=== PATIENT | female | born 1950 | race Hispanic/Latino ===

== ENCOUNTER 2019-11-29 22:49 | Emergency (ER) | payer MEDICARE ==
[2019-11-30 01:44] LABS: Bilirubin,Urine NEG (Negative); Blood,Urine SM (Negative); Color,Urine Yellow (Yellow); Protein,Urine <15 mg/dL mg/dL (Negative)
[2019-11-30] MEDS ORDERED: HYDROcodone/ACETAMINOPHEN 5-325 MG TAB PO ONE (03:37)
[2019-11-30] MEDS ORDERED: LIDOCAINE VISCOUS 2% 15 ML ORAL LIQD MM NR (04:00)
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
[2019-11-30 06:17] VITALS: BP 131/75
== END 2019-11-30 05:36 | disposition home or self-care (01) ==
LOC: ED 22:49
DX: K62.3 Rectal prolapse (principal); N81.10 Cystocele, unspecified; J42 Unspecified chronic bronchitis; I10 Essential (primary) hypertension; F17.200 Nicotine dependence, unspecified, uncomplicated; Z79.1 Long term (current) use of non-steroidal anti-inflammatories (NSAID); Z79.899 Other long term (current) drug therapy; Z88.0 Allergy status to penicillin; Z88.2 Allergy status to sulfonamides
CPT/HCPCS: 81001

== ENCOUNTER 2019-12-26 20:30 | Emergency (ER) | payer MEDICARE ==
[2019-12-26 22:47] VITALS: BP 113/68
[2019-12-26] MEDS ORDERED: oxyCODONE /ACETAMINOPHEN 5-325MG TAB PO ONE (23:50)
--- NOTE | 2019-12-27 00:29 | XRay Report ---
LEFT WRIST 3 VIEWS INDICATION / CLINICAL INFORMATION: Foosh injury with pain and deformity COMPARISON: None available. FINDINGS: BONES / JOINT(S): Nondisplaced fracture extending into the distal radius along the ulnar aspect. Ther e is involvement of the radiocarpal joint. No carpal injury. SOFT TISSUES: No significant abnormality. ADDITIONAL FINDINGS: None. LEFT HAND 3 VIEWS INDICATION / CLINICAL INFORMATION: Foosh injury with pain and deformity COMPARISON: None available. FINDINGS: BONES / JOINT(S): Nondisplaced fracture distal radius. Advanced DJD first carpometacarpal joint. SOFT TISSUES: No significant abnormality. ADDITIONAL FINDINGS: None. Signer Name: Claude Jo MD Signed: 12/27/2019 12:25 AM Workstation Name: [id number]
--- NOTE | 2019-12-27 00:37 | Emergency Department Report ---
ED General Adult HPI - General Chief complaint: Extremity Injury, Upper Stated complaint: FALL Time Seen by Provider: 12/26/19 23:23 Source: patient Mode of arrival: Ambulatory Limitations: No Limitations - History of Present Illness Initial comments: 69-year-old female patient presents with complaints of left wrist and hand pain after fall on outstretched hand today. She denies any head trauma or loss of consciousness or preceding symptoms. She states it was a mechanical fall. She rates her pain as a 10/10 in severity and states there is significant swelling. She denies any numbness/tingling/weakness in her hand or wrist. -: Sudden Severity scale (0 -10): 10 - Related Data Previous Rx's Medication Instructions Recorded Last Taken Type Antipyrine/Benzocaine 14 ml OT Q4HR PRN #1 bottle 09/23/13 Unknown Rx [Antipyrine-Benzocaine Otic Vero] cephALEXin [Keflex] 500 mg PO Q6H #40 capsule 09/23/13 Unknown Rx HYDROcodone/APAP 5-325 [[place] 1 each PO Q6HR PRN #10 tablet 11/04/14 Unknown Rx 5-325 mg TAB] Ibuprofen [Motrin 800 MG tab] 800 mg PO Q8HR PRN #30 tablet 11/04/14 Unknown Rx traMADoL [Ultram 50 MG tab] 50 mg PO Q6HR PRN #20 tablet 11/04/14 Unknown Rx Ibuprofen [Motrin 800 MG tab] 800 mg PO Q8HR PRN #20 tablet 03/27/19 Unknown Rx Albuterol Mdi (or & Nicu Only) 2 puff IH QID PRN #1 inhalation 11/30/19 Unknown Rx [ProAir HFA Inhaler] Benzonatate [Tessalon Perles] 100 mg PO Q8HR #10 capsule 11/30/19 Unknown Rx DOXYCYCLINE Hyclate [Vibramycin 100 mg PO Q12HR #14 capsule 11/30/19 Unknown Rx CAP] Lidocaine [Lidocaine GEL] 1 applicatio TP BID #60 gel..gram. 11/30/19 Unknown Rx predniSONE [Deltasone] 20 mg PO QDAY #5 tab 11/30/19 Unknown Rx Allergies Allergy/AdvReac Type Severity Reaction Status Date / Time Sulfa (Sulfonamide Allergy Rash Verified 09/23/13 11:48 Antibiotics) penicillin AdvReac Unknown Verified 11/03/14 23:28 ED Review of Systems ROS: Stated complaint: FALL Other details as noted in HPI Constitutional: denies: chills, fever Respiratory: denies: shortness of breath Cardiovascular: denies: chest pain Gastrointestinal: denies: abdominal pain Musculoskeletal: joint swelling, arthralgia Skin: denies: rash, lesions, change in color Neurological: denies: numbness, paresthesias ED Past Medical Hx - Past Medical History Hx Hypertension: Yes Hx COPD: Yes Additional medical history: chronic back pain. PUD. HEP C - Surgical History Additional Surgical History: hyst - Social History Smoking Status: Current Every Day Smoker Substance Use Type: None - Medications Home Medications: Home Medications Medication Instructions Recorded Confirmed Last Taken Type Antipyrine/Benzocaine 14 ml OT Q4HR PRN #1 bottle 09/23/13 Unknown Rx [Antipyrine-Benzocaine Otic Vero] cephALEXin [Keflex] 500 mg PO Q6H #40 capsule 09/23/13 Unknown Rx HYDROcodone/APAP 5-325 [[place] 1 each PO Q6HR PRN #10 tablet 11/04/14 Unknown Rx 5-325 mg TAB] Ibuprofen [Motrin 800 MG tab] 800 mg PO Q8HR PRN #30 tablet 11/04/14 Unknown Rx traMADoL [Ultram 50 MG tab] 50 mg PO Q6HR PRN #20 tablet 11/04/14 Unknown Rx Ibuprofen [Motrin 800 MG tab] 800 mg PO Q8HR PRN #20 tablet 03/27/19 Unknown Rx Albuterol Mdi (or & Nicu Only) 2 puff IH QID PRN #1 inhalation 11/30/19 Unknown Rx [ProAir HFA Inhaler] Benzonatate [Tessalon Perles] 100 mg PO Q8HR #10 capsule 11/30/19 Unknown Rx DOXYCYCLINE Hyclate [Vibramycin 100 mg PO Q12HR #14 capsule 11/30/19 Unknown Rx CAP] Lidocaine [Lidocaine GEL] 1 applicatio TP BID #60 gel..gram. 11/30/19 Unknown Rx predniSONE [Deltasone] 20 mg PO QDAY #5 tab 11/30/19 Unknown Rx ED Physical Exam - General Limitations: No Limitations General appearance: alert, in no apparent distress - Head Head exam: Present: atraumatic, normocephalic - Eye Eye exam: Present: normal appearance. Absent: scleral icterus - Neck Neck exam: Present: normal inspection. Absent: tenderness - Respiratory Respiratory exam: Absent: respiratory distress - Cardiovascular Cardiovascular Exam: Present: regular rate, normal rhythm - Extremities Exam Extremities exam: Present: other (Left wrist and hand swelling and tenderness to palpation noted; no decreased sensation noted. Patient is able to flex and extend all 5 digits; decreased flexion and extension of the wrist noted secondary to pain) - Back Exam Back exam: Present: full ROM - Neurological Exam Neurological exam: Present: alert, oriented X3, normal gait - Psychiatric Psychiatric exam: Present: normal affect, normal mood - Skin Skin exam: Present: warm, dry, intact, normal color. Absent: rash, cyanosis, diaphoretic, erythema, pallor, ecchymosis ED Course Vital Signs 12/26/19 20:38 Temperature 98.0 F Pulse Rate 71 Respiratory 18 Rate Blood Pressure 113/68 O2 Sat by Pulse 92 Oximetry - Procedure Description Procedures done: Left sugar tong splint applied; patient remains neurovascularly intact in all 5 digits post splint application. She tolerated procedure well. ED Medical Decision Making - Radiology Data Radiology results: report reviewed LEFT WRIST 3 VIEWS INDICATION / CLINICAL INFORMATION: Foosh injury with pain and deformity COMPARISON: None available. FINDINGS: BONES / JOINT(S): Nondisplaced fracture extending into the distal radius along the ulnar aspect. There is involvement of the radiocarpal joint. No carpal injury. SOFT TISSUES: No significant abnormality. ADDITIONAL FINDINGS: None. LEFT HAND 3 VIEWS INDICATION / CLINICAL INFORMATION: Foosh injury with pain and deformity COMPARISON: None available. FINDINGS: BONES / JOINT(S): Nondisplaced fracture distal radius. Advanced DJD first carpometacarpal joint. SOFT TISSUES: No significant abnormality. ADDITIONAL FINDINGS: None. - Medical Decision Making Patient here with left wrist and hand pain after a FOOSH injury. X-ray showed a nondisplaced distal radial fracture extending through the radiocarpal joint. sugar tong splint applied. Patient informed to follow-up with Dr. Thang Lozano, orthopedics, first thing tomorrow morning for further evaluation and treatment. Discussed signs and symptoms that should prompt immediate return to the emergency department in detail with patient who verbalizes understanding. She is well-appearing and stable for discharge home. Critical care attestation.: If time is entered above; I have spent that time in minutes in the direct care of this critically ill patient, excluding procedure time. ED Disposition Clinical Impression: Distal radius fracture, left Qualifiers: Encounter type: initial encounter Fracture type: closed Fracture morphology: other fracture Qualified Code(s): S52.592A - Other fractures of lower end of left radius, initial encounter for closed fracture Disposition: TO HOME OR SELFCARE Is pt being admited?: No Condition: Stable Instructions: Wrist Fracture in Adults (ED) Referrals: THANG LOZANO MD [Staff Physician] - 24 Hours
[2019-12-27] MEDS ORDERED: oxyCODONE /ACETAMINOPHEN 5-325MG TAB PO ONE (02:11)
== END 2019-12-27 03:02 | disposition home or self-care (01) ==
LOC: ED 20:30
DX: S52.502A Unspecified fracture of the lower end of left radius, initial encounter for closed fracture (principal); I10 Essential (primary) hypertension; J44.9 Chronic obstructive pulmonary disease, unspecified; F17.200 Nicotine dependence, unspecified, uncomplicated; Z90.710 Acquired absence of both cervix and uterus; Z79.1 Long term (current) use of non-steroidal anti-inflammatories (NSAID); Z79.899 Other long term (current) drug therapy; Z88.2 Allergy status to sulfonamides; Z88.0 Allergy status to penicillin; W19.XXXA Unspecified fall, initial encounter; Y93.89 Activity, other specified; Y92.89 Other specified places as the place of occurrence of the external cause; Y99.8 Other external cause status

== ENCOUNTER 2020-05-24 17:29 | Emergency (ER) | payer MEDICARE ==
[2020-05-24 17:46] VITALS: BP 122/64
--- NOTE | 2020-05-24 17:52 | Emergency Department Report ---
ED Rash HPI - HPI Chief Complaint: Skin/Abscess/Foreign Body Stated Complaint: STAPH ON HEAD Time Seen by Provider: 05/24/20 17:50 Duration: 5 Days Location: Head Suspected Cause: Unknown Rash Symptoms: Yes Itching (head), No Facial Swelling, No Tongue/Oral Swelling, No Breathing Difficulties, No Choking Sensation, No Wheezing/Dyspnea, No Peeling, No Blistering, No Fever, No Lightheaded, No Malaise, No Myalgias Severity: moderate Other History: Patient is a 69-year-old female presents the ED complaining of bacterial infection on her scalp. Patient states that she hair and all of a sudden she had to cut it because she initially had lice and now has a rash on her scalp which itches. Patient denies any other family member with similar symptoms. Patient states she has had this in the past before. ED Review of Systems ROS: Stated complaint: STAPH ON HEAD Other details as noted in HPI Comment: All other systems reviewed and negative ED Past Medical Hx - Past Medical History Hx Hypertension: Yes Hx COPD: Yes Additional medical history: chronic back pain. PUD. HEP C - Surgical History Additional Surgical History: hyst - Social History Smoking Status: Current Every Day Smoker Substance Use Type: Alcohol - Medications Home Medications: Home Medications Medication Instructions Recorded Confirmed Last Taken Type Antipyrine/Benzocaine 14 ml OT Q4HR PRN #1 bottle 09/23/13 Unknown Rx [Antipyrine-Benzocaine Otic Vero] HYDROcodone/APAP 5-325 [[place] 1 each PO Q6HR PRN #10 tablet 11/04/14 Unknown Rx 5-325 mg TAB] Ibuprofen [Motrin 800 MG tab] 800 mg PO Q8HR PRN #30 tablet 11/04/14 Unknown Rx traMADoL [Ultram 50 MG tab] 50 mg PO Q6HR PRN #20 tablet 11/04/14 Unknown Rx Ibuprofen [Motrin 800 MG tab] 800 mg PO Q8HR PRN #20 tablet 03/27/19 Unknown Rx Albuterol Mdi (or & Nicu Only) 2 puff IH QID PRN #1 inhalation 11/30/19 Unknown Rx [ProAir HFA Inhaler] Benzonatate [Tessalon Perles] 100 mg PO Q8HR #10 capsule 11/30/19 Unknown Rx Lidocaine [Lidocaine GEL] 1 applicatio TP BID #60 gel..gram. 11/30/19 Unknown Rx predniSONE [Deltasone] 20 mg PO QDAY #5 tab 11/30/19 Unknown Rx DOXYCYCLINE Hyclate [Vibramycin 100 mg PO Q12HR #14 capsule 05/24/20 Unknown Rx CAP] Ketoconazole [Nizoral A-D] 1 applic TP DAILY #1 shampoo 05/24/20 Unknown Rx cephALEXin [Keflex] 500 mg PO Q6H #40 capsule 05/24/20 Unknown Rx Rash Exam - Exam General: Vital signs noted. No distress. Alert and acting appropriately. Head: Scalp had multiple raised lesions consistent with mild scalp infection/lice. HEENT: No Periorbital Edema, No Conjuctival Injection, No Chemosis, No Perioral Edema, No Tongue Edema, No Uvular Edema, No Compromised Airway, No Drooling Lungs: Yes Good Air Exchange (Normal Breath Sounds), No Wheezes, No Ronchi, No Stridor, No Cough, No Labored Respirations, No Retractions, No Use of Accessory Muscles, No Other Abnormal Lung Sounds Heart: Yes Regular, No Murmur Skin: Yes Maculopapular Rash, Yes Erythema, No Urticarial Rash, No Morbilliform rash, No Bulla(e), No Excoriations, No Edema, No Encrustations Other: Positive: Abdomen Normal, Neurologic Normal, Musculoskeletal Normal ED Course Vital Signs 05/24/20 17:44 Temperature 97.8 F Pulse Rate 70 Respiratory 18 Rate Blood Pressure 122/64 O2 Sat by Pulse 98 Oximetry ED Medical Decision Making - Medical Decision Making 69-year-old female who presents to ED with scalp rash consistent with lice/scalp infection Discussed with patient follow-up with a primary care physician. Patient states she has an appointment with up primary care physician on Thursday and will follow-up. Patient for antimicrobial therapy and topical wash. Vital signs are normal she is in no acute or respiratory distress. Discussed with patient if she has any worsening or new symptoms she may present to the ED immediately Critical care attestation.: If time is entered above; I have spent that time in minutes in the direct care of this critically ill patient, excluding procedure time. ED Disposition Clinical Impression: Scalp abrasion, non-infected Disposition: TO HOME OR SELFCARE Is pt being admited?: No Does the pt Need Aspirin: No Condition: Stable Instructions: Abrasion, MRSA Infection, Self-Care, Adult Additional Instructions: Make sure to follow up with the primary care physician as discussed. Take all your medications as you've been prescribed. If you have any worsening symptoms or develop new symptoms please return to ED immediately. Prescriptions: cephALEXin [Keflex] 500 mg PO Q6H #40 capsule Ketoconazole [Nizoral A-D] 1 applic TP DAILY #1 shampoo DOXYCYCLINE Hyclate [Vibramycin CAP] 100 mg PO Q12HR #14 capsule Referrals: [facility] [Outside] - 3-5 Days [facility] [Outside] - 3-5 Days Forms: Work/School Release Form(ED) Time of Disposition: 18:04
== END 2020-05-24 18:40 | disposition home or self-care (01) ==
LOC: ED 17:29
DX: S00.01XA Abrasion of scalp, initial encounter (principal); I10 Essential (primary) hypertension; J44.9 Chronic obstructive pulmonary disease, unspecified; F17.200 Nicotine dependence, unspecified, uncomplicated; Z98.890 Other specified postprocedural states; Z79.1 Long term (current) use of non-steroidal anti-inflammatories (NSAID); Z79.899 Other long term (current) drug therapy; Z88.2 Allergy status to sulfonamides; X58.XXXA Exposure to other specified factors, initial encounter; Y93.89 Activity, other specified; Y92.89 Other specified places as the place of occurrence of the external cause; Y99.8 Other external cause status
CPT/HCPCS: 99282

== ENCOUNTER 2020-07-22 20:06 | Emergency (ER) | payer MEDICARE ==
[2020-07-22] MEDS ORDERED: CLINDAMYCIN 300 MG CAP PO ONE (22:22)
[2020-07-22] MEDS ORDERED: oxyCODONE /ACETAMINOPHEN 5-325MG TAB PO ONE (22:22)
--- NOTE | 2020-07-22 22:27 | Emergency Department Report ---
- General Chief complaint: Extremity Injury, Lower Stated complaint: CELLULITIS Time Seen by Provider: 07/22/20 21:57 Source: patient Mode of arrival: Ambulatory Limitations: No Limitations - History of Present Illness Initial comments: Chief complaint: "I have cellulitis. I know I need Lasix." HPI: This is a 69-year-old female with history of cellulitis, MRSA, COPD, hypertension, chronic back pain, peptic ulcer disease, hepatitis C, DVT who presents with redness swelling both legs. She has had swelling for the past several months. She was admitted at [facility] for swelling several months ago. The swelling and redness improved with Lasix more so than antibiotic therapy. She does not have a primary care physician. She is followed by pain management. She recently had bladder rectal surgery for prolapse. Patient has ulcer at the right toe. She was evaluated by station worker while admitted to outside hospital. No history of diabetes. She has Lasix at home. However she is hesitant to take medication. She states that this medicine is "hard on me". MD complaint: rash, other (Bilateral lower extremity redness swelling right toe ulcer) -: Gradual (Several months) Location: LLE, RLE Severity: moderate Quality: aching Consistency: constant Improves with: medication (Antibiotics and Lasix) Worsens with: none Context: other (History of MRSA, history of leg swelling, history of cellulitis) Associated symptoms: denies other symptoms Treatments Prior to Arrival: none - Related Data Previous Rx's Medication Instructions Recorded Last Taken Type Antipyrine/Benzocaine 14 ml OT Q4HR PRN #1 bottle 09/23/13 Unknown Rx [Antipyrine-Benzocaine Otic Vero] HYDROcodone/APAP 5-325 [[place] 1 each PO Q6HR PRN #10 tablet 11/04/14 Unknown Rx 5-325 mg TAB] Ibuprofen [Motrin 800 MG tab] 800 mg PO Q8HR PRN #30 tablet 11/04/14 Unknown Rx traMADoL [Ultram 50 MG tab] 50 mg PO Q6HR PRN #20 tablet 11/04/14 Unknown Rx Ibuprofen [Motrin 800 MG tab] 800 mg PO Q8HR PRN #20 tablet 03/27/19 Unknown Rx Albuterol Mdi (or & Nicu Only) 2 puff IH QID PRN #1 inhalation 11/30/19 Unknown Rx [ProAir HFA Inhaler] Benzonatate [Tessalon Perles] 100 mg PO Q8HR #10 capsule 11/30/19 Unknown Rx Lidocaine [Lidocaine GEL] 1 applicatio TP BID #60 gel..gram. 11/30/19 Unknown Rx predniSONE [Deltasone] 20 mg PO QDAY #5 tab 11/30/19 Unknown Rx DOXYCYCLINE Hyclate [Vibramycin 100 mg PO Q12HR #14 capsule 05/24/20 Unknown Rx CAP] Ketoconazole [Nizoral A-D] 1 applic TP DAILY #1 shampoo 05/24/20 Unknown Rx cephALEXin [Keflex] 500 mg PO Q6H #40 capsule 05/24/20 Unknown Rx Clindamycin [Clindamycin CAP] 300 mg PO TID 10 Days #30 cap 07/22/20 Unknown Rx Allergies Allergy/AdvReac Type Severity Reaction Status Date / Time Sulfa (Sulfonamide Allergy Rash Verified 05/24/20 17:43 Antibiotics) Abscess Boil HPI - HPI Chief Complaint: Extremity Injury, Lower Stated Complaint: CELLULITIS Time Seen by Provider: 07/22/20 21:57 Home Medications: Previous Rx's Medication Instructions Recorded Last Taken Type Antipyrine/Benzocaine 14 ml OT Q4HR PRN #1 bottle 09/23/13 Unknown Rx [Antipyrine-Benzocaine Otic Vero] HYDROcodone/APAP 5-325 [[place] 1 each PO Q6HR PRN #10 tablet 11/04/14 Unknown Rx 5-325 mg TAB] Ibuprofen [Motrin 800 MG tab] 800 mg PO Q8HR PRN #30 tablet 11/04/14 Unknown Rx traMADoL [Ultram 50 MG tab] 50 mg PO Q6HR PRN #20 tablet 11/04/14 Unknown Rx Ibuprofen [Motrin 800 MG tab] 800 mg PO Q8HR PRN #20 tablet 03/27/19 Unknown Rx Albuterol Mdi (or & Nicu Only) 2 puff IH QID PRN #1 inhalation 11/30/19 Unknown Rx [ProAir HFA Inhaler] Benzonatate [Tessalon Perles] 100 mg PO Q8HR #10 capsule 11/30/19 Unknown Rx Lidocaine [Lidocaine GEL] 1 applicatio TP BID #60 gel..gram. 11/30/19 Unknown Rx predniSONE [Deltasone] 20 mg PO QDAY #5 tab 11/30/19 Unknown Rx DOXYCYCLINE Hyclate [Vibramycin 100 mg PO Q12HR #14 capsule 05/24/20 Unknown Rx CAP] Ketoconazole [Nizoral A-D] 1 applic TP DAILY #1 shampoo 05/24/20 Unknown Rx cephALEXin [Keflex] 500 mg PO Q6H #40 capsule 05/24/20 Unknown Rx Clindamycin [Clindamycin CAP] 300 mg PO TID 10 Days #30 cap 07/22/20 Unknown Rx Allergies/Adverse Reactions: Allergies Allergy/AdvReac Type Severity Reaction Status Date / Time Sulfa (Sulfonamide Allergy Rash Verified 05/24/20 17:43 Antibiotics) ED Review of Systems ROS: Stated complaint: CELLULITIS Other details as noted in HPI Comment: All other systems reviewed and negative Constitutional: denies: chills, fever, malaise Respiratory: denies: cough, shortness of breath Cardiovascular: denies: chest pain Gastrointestinal: denies: abdominal pain, nausea, vomiting Skin: rash, lesions ED Past Medical Hx - Past Medical History Previous Medical History?: Yes Hx Hypertension: Yes Hx COPD: Yes Additional medical history: chronic back pain. PUD. HEP C - Surgical History Past Surgical History?: Yes Additional Surgical History: hyst, BLADDER TACK POSSIBLE COMPLICATION WITH COLON - Social History Smoking Status: Never Smoker Substance Use Type: None - Medications Home Medications: Home Medications Medication Instructions Recorded Confirmed Last Taken Type Antipyrine/Benzocaine 14 ml OT Q4HR PRN #1 bottle 09/23/13 Unknown Rx [Antipyrine-Benzocaine Otic Vero] HYDROcodone/APAP 5-325 [[place] 1 each PO Q6HR PRN #10 tablet 11/04/14 Unknown Rx 5-325 mg TAB] Ibuprofen [Motrin 800 MG tab] 800 mg PO Q8HR PRN #30 tablet 11/04/14 Unknown Rx traMADoL [Ultram 50 MG tab] 50 mg PO Q6HR PRN #20 tablet 11/04/14 Unknown Rx Ibuprofen [Motrin 800 MG tab] 800 mg PO Q8HR PRN #20 tablet 03/27/19 Unknown Rx Albuterol Mdi (or & Nicu Only) 2 puff IH QID PRN #1 inhalation 11/30/19 Unknown Rx [ProAir HFA Inhaler] Benzonatate [Tessalon Perles] 100 mg PO Q8HR #10 capsule 11/30/19 Unknown Rx Lidocaine [Lidocaine GEL] 1 applicatio TP BID #60 gel..gram. 11/30/19 Unknown Rx predniSONE [Deltasone] 20 mg PO QDAY #5 tab 11/30/19 Unknown Rx DOXYCYCLINE Hyclate [Vibramycin 100 mg PO Q12HR #14 capsule 05/24/20 Unknown Rx CAP] Ketoconazole [Nizoral A-D] 1 applic TP DAILY #1 shampoo 05/24/20 Unknown Rx cephALEXin [Keflex] 500 mg PO Q6H #40 capsule 05/24/20 Unknown Rx Clindamycin [Clindamycin CAP] 300 mg PO TID 10 Days #30 cap 07/22/20 Unknown Rx ED Physical Exam - General Limitations: No Limitations General appearance: alert, in no apparent distress, other (Pleasant, talkative, nontoxic) - Head Head exam: Present: atraumatic, normocephalic - Eye Eye exam: Present: normal appearance - ENT ENT exam: Present: mucous membranes moist - Neck Neck exam: Present: normal inspection, full ROM - Respiratory Respiratory exam: Present: normal lung sounds bilaterally. Absent: respiratory distress, wheezes, rales, rhonchi - Cardiovascular Cardiovascular Exam: Present: regular rate, normal rhythm, normal heart sounds. Absent: systolic murmur, diastolic murmur, rubs, gallop - GI/Abdominal GI/Abdominal exam: Present: soft, normal bowel sounds. Absent: distended, tenderness, guarding, rebound - Extremities Exam Extremities exam: Present: normal inspection - Neurological Exam Neurological exam: Present: alert, oriented X3 - Psychiatric Psychiatric exam: Present: normal affect, normal mood - Skin Skin exam: Present: warm, dry, intact, other (Slightly erythematous skin from knee to foot bilaterally, wrinkled skin nonpitting edema, small 8 mm circular puncture type ulcer plantar surface of right big toe) ED Course Vital Signs 07/22/20 20:55 Temperature 97.8 F Pulse Rate 90 Respiratory 18 Rate Blood Pressure 168/83 O2 Sat by Pulse 95 Oximetry ED Medical Decision Making - Medical Decision Making Venous stasis dermatitis present for several months. I recommended ambulation. Home furosemide therapy. She was prescribed clindamycin. She is now primary care physician. Strongly advised follow-up with our physician and station worker. Small noninfected ulcer. Critical care attestation.: If time is entered above; I have spent that time in minutes in the direct care of this critically ill patient, excluding procedure time. ED Disposition Clinical Impression: Venous stasis dermatitis of both lower extremities, Skin ulcer of right great toe Disposition: TO HOME OR SELFCARE Is pt being admited?: No Does the pt Need Aspirin: No Condition: Stable Instructions: Stasis Dermatitis, Chronic Venous Insufficiency Prescriptions: Clindamycin [Clindamycin CAP] 300 mg PO TID 10 Days #30 cap Referrals: WILL GARCIA MD [Staff Physician] - 3-5 Days BROOKS WHITAKER DPM [Staff Physician] - 3-5 Days
[2020-07-22 22:53] VITALS: BP 159/84
== END 2020-07-22 22:57 | disposition home or self-care (01) ==
LOC: ED 20:06
DX: L98.491 Non-pressure chronic ulcer of skin of other sites limited to breakdown of skin (principal); I87.2 Venous insufficiency (chronic) (peripheral); I10 Essential (primary) hypertension; E11.9 Type 2 diabetes mellitus without complications; Z79.899 Other long term (current) drug therapy; Z88.2 Allergy status to sulfonamides
CPT/HCPCS: 99282

== ENCOUNTER 2021-03-14 18:55 | Emergency (ER) | payer MEDICARE ==
[2021-03-14 19:00] VITALS: BP 132/51
--- NOTE | 2021-03-14 19:52 | Emergency Department Report ---
ED General Adult HPI - General Chief complaint: High BP Stated complaint: BLOOD PRESSURE/ CELLULITIS Time Seen by Provider: 03/14/21 19:19 Source: patient Mode of arrival: Ambulatory Limitations: No Limitations - History of Present Illness Initial comments: 70-year-old female who has been to our hospital before presents for left heel cellulitis in medication refill of her blood pressure medicine. Patient states she has been out of her blood pressure medicine for 2 days. She complains her of pus coming from her heel when she squeezes it hard for several months. She states she has been on hospitalized 3 times in the last year. She states that she had been on antibiotics for infection of her feet. Patient states that she does walk a lot. She is currently staying at the [facility] [place] with her son. She has been referred several times to primary care and podiatry but has not followed up yet. Patient denies any fever or chills. Onset/Timin -: year(s) - Related Data Previous Rx's Medication Instructions Recorded Last Taken Type Antipyrine/Benzocaine 14 ml OT Q4HR PRN #1 bottle 09/23/13 Unknown Rx [Antipyrine-Benzocaine Otic Vero] HYDROcodone/APAP 5-325 [[place] 1 each PO Q6HR PRN #10 tablet 11/04/14 Unknown Rx 5-325 mg TAB] Ibuprofen [Motrin 800 MG tab] 800 mg PO Q8HR PRN #30 tablet 11/04/14 Unknown Rx traMADoL [Ultram 50 MG tab] 50 mg PO Q6HR PRN #20 tablet 11/04/14 Unknown Rx Ibuprofen [Motrin 800 MG tab] 800 mg PO Q8HR PRN #20 tablet 03/27/19 Unknown Rx Albuterol Mdi (or & Nicu Only) 2 puff IH QID PRN #1 inhalation 11/30/19 Unknown Rx [ProAir HFA Inhaler] Benzonatate [Tessalon Perles] 100 mg PO Q8HR #10 capsule 11/30/19 Unknown Rx Lidocaine [Lidocaine GEL] 1 applicatio TP BID #60 gel..gram. 11/30/19 Unknown Rx predniSONE [Deltasone] 20 mg PO QDAY #5 tab 11/30/19 Unknown Rx DOXYCYCLINE Hyclate [Vibramycin 100 mg PO Q12HR #14 capsule 05/24/20 Unknown Rx CAP] Ketoconazole [Nizoral A-D] 1 applic TP DAILY #1 shampoo 05/24/20 Unknown Rx cephALEXin [Keflex] 500 mg PO Q6H #40 capsule 05/24/20 Unknown Rx Clindamycin [Clindamycin CAP] 300 mg PO TID 10 Days #30 cap 07/22/20 Unknown Rx amLODIPine 10 mg PO DAILY #30 tab 03/14/21 Unknown Rx cephALEXin [Keflex] 500 mg PO Q8HR #30 cap 03/14/21 Unknown Rx cloNIDine [Catapres] 0.1 mg PO QHS #30 tablet 03/14/21 Unknown Rx lisinopriL [Lisinopril] 20 mg PO QDAY #30 tablet 03/14/21 Unknown Rx Allergies Allergy/AdvReac Type Severity Reaction Status Date / Time Sulfa (Sulfonamide Allergy Rash Verified 05/24/20 17:43 Antibiotics) ED Review of Systems ROS: Stated complaint: BLOOD PRESSURE/ CELLULITIS Other details as noted in HPI ED Past Medical Hx - Past Medical History Hx Hypertension: Yes Hx COPD: Yes Additional medical history: chronic back pain. PUD. HEP C - Surgical History Additional Surgical History: hyst, BLADDER TACK POSSIBLE COMPLICATION WITH COLON - Social History Smoking Status: Never Smoker Substance Use Type: None - Medications Home Medications: Home Medications Medication Instructions Recorded Confirmed Last Taken Type Antipyrine/Benzocaine 14 ml OT Q4HR PRN #1 bottle 09/23/13 Unknown Rx [Antipyrine-Benzocaine Otic Vero] HYDROcodone/APAP 5-325 [[place] 1 each PO Q6HR PRN #10 tablet 11/04/14 Unknown Rx 5-325 mg TAB] Ibuprofen [Motrin 800 MG tab] 800 mg PO Q8HR PRN #30 tablet 11/04/14 Unknown Rx traMADoL [Ultram 50 MG tab] 50 mg PO Q6HR PRN #20 tablet 11/04/14 Unknown Rx Ibuprofen [Motrin 800 MG tab] 800 mg PO Q8HR PRN #20 tablet 03/27/19 Unknown Rx Albuterol Mdi (or & Nicu Only) 2 puff IH QID PRN #1 inhalation 11/30/19 Unknown Rx [ProAir HFA Inhaler] Benzonatate [Tessalon Perles] 100 mg PO Q8HR #10 capsule 11/30/19 Unknown Rx Lidocaine [Lidocaine GEL] 1 applicatio TP BID #60 gel..gram. 11/30/19 Unknown Rx predniSONE [Deltasone] 20 mg PO QDAY #5 tab 11/30/19 Unknown Rx DOXYCYCLINE Hyclate [Vibramycin 100 mg PO Q12HR #14 capsule 05/24/20 Unknown Rx CAP] Ketoconazole [Nizoral A-D] 1 applic TP DAILY #1 shampoo 05/24/20 Unknown Rx cephALEXin [Keflex] 500 mg PO Q6H #40 capsule 05/24/20 Unknown Rx Clindamycin [Clindamycin CAP] 300 mg PO TID 10 Days #30 cap 07/22/20 Unknown Rx amLODIPine 10 mg PO DAILY #30 tab 03/14/21 Unknown Rx cephALEXin [Keflex] 500 mg PO Q8HR #30 cap 03/14/21 Unknown Rx cloNIDine [Catapres] 0.1 mg PO QHS #30 tablet 03/14/21 Unknown Rx lisinopriL [Lisinopril] 20 mg PO QDAY #30 tablet 03/14/21 Unknown Rx ED Physical Exam - General Limitations: No Limitations General appearance: alert, in no apparent distress - Head Head exam: Present: atraumatic, normocephalic - Eye Eye exam: Present: normal appearance - ENT ENT exam: Present: mucous membranes moist - Neck Neck exam: Present: normal inspection - Respiratory Respiratory exam: Present: normal lung sounds bilaterally. Absent: respiratory distress - Cardiovascular Cardiovascular Exam: Present: regular rate, normal rhythm. Absent: systolic murmur, diastolic murmur, rubs, gallop - GI/Abdominal GI/Abdominal exam: Present: soft, normal bowel sounds - Extremities Exam Extremities exam: Present: normal inspection - Expanded Lower Extremity Exam Right Hip exam: Present: normal inspection, full ROM Upper Leg exam: Present: normal inspection, full ROM Knee exam: Present: normal inspection, full ROM Lower Leg exam: Present: normal inspection, full ROM Foot/Toe exam: Present: tenderness, puncture wound. Absent: swelling, deformity, crepidus, erythema Neuro vascular tendon exam: Present: no vascular compromise Gait: Positive: observed and normal - Back Exam Back exam: Present: normal inspection - Neurological Exam Neurological exam: Present: alert, oriented X3 - Psychiatric Psychiatric exam: Present: normal affect, normal mood - Skin Skin exam: Present: warm, dry, intact, normal color. Absent: rash ED Course Vital Signs 03/14/21 18:59 Temperature 98.6 F Pulse Rate 75 Respiratory 20 Rate Blood Pressure 132/51 O2 Sat by Pulse 92 Oximetry Critical care attestation.: If time is entered above; I have spent that time in minutes in the direct care of this critically ill patient, excluding procedure time. ED Disposition Clinical Impression: Cellulitis of foot, HTN (hypertension), Medication refill Disposition: HOME / SELF CARE / HOMELESS Is pt being admited?: No Does the pt Need Aspirin: No Condition: Stable Instructions: Cellulitis, Adult, [id number], Managing Your Hypertension, Hypertension (ED) Additional Instructions: Complete antibiotics as prescribed Tylenol or ibuprofen as needed for pain management. Be sure to take your blood pressure medication and follow-up with a primary care provider as well as a [employer] administrator which is a foot doctor. Prescriptions: cloNIDine [Catapres] 0.1 mg PO QHS #30 tablet amLODIPine 10 mg PO DAILY #30 tab cephALEXin [Keflex] 500 mg PO Q8HR #30 cap lisinopriL [Lisinopril] 20 mg PO QDAY #30 tablet Referrals: BROOKS WHITAKER DPM [Staff Physician] - 3-5 Days WILL GARCIA MD [Staff Physician] - 3-5 Days Forms: Accompanied Note
== END 2021-03-14 20:55 | disposition home or self-care (01) ==
LOC: ED 18:55
DX: L03.116 Cellulitis of left lower limb (principal); L03.115 Cellulitis of right lower limb; I10 Essential (primary) hypertension; Z76.0 Encounter for issue of repeat prescription; J44.9 Chronic obstructive pulmonary disease, unspecified; Z88.2 Allergy status to sulfonamides; Z79.899 Other long term (current) drug therapy
CPT/HCPCS: 99282